=== PATIENT | female | born 1980 | race Caucasian/White ===

== ENCOUNTER 2018-02-21 12:43 | Emergency (ER) | payer OTHER ==
[2018-02-21 13:08] VITALS: BP 99/62
--- NOTE | 2018-02-21 14:21 | UC ---
Complaint Female HPI - HPI Summary HPI Summary: 37 y/o female presents to the urgent care c/o yeast infection "I think I have a yeast infection." Urinary urgency, "occassionally" dysuria, "maybe" vaginal itching, and nocturia (10x nightly) for one week. Symptoms are constant but wax and wane. Urgent Care visit in [facility]. 02/16/17; presumptively treated for a UTI and Yeast with Bactrim DS BID x 3 days and Diflucan x 2 72 hours apart. Was called to stop antibiotic because urine culture was normal. No other tested. Two days, patient used Monistat-1 without relief. - History Of Current Complaint Chief Complaint: UCGU Stated Complaint: PERSONAL Time Seen by Provider: 02/21/18 13:52 Hx Obtained From: Patient Hx Last Menstrual Period: ~02/06/18 Onset/Duration: Gradual Onset, Lasting Weeks - 1 week, Still Present, Worse Since - yesterday Timing: Constant Severity Initially: Mild Severity Currently: Moderate Pain Intensity: 8 Pain Scale Used: 0-10 Numeric Character: Burning Aggravating Factor(s): Urination Associated Signs And Symptoms: Positive: Vaginal Discharge. Negative: Fever, Back Pain, Vaginal Bleeding/Discharge, Genital Swelling, Genital Blisters - Risk Factors Ectopic Risk Factor: Negative Ovarian Torsion Risk Factor: Negative - Allergies/Home Medications Allergies/Adverse Reactions: Allergies Allergy/AdvReac Type Severity Reaction Status Date / Time No Known Allergies Allergy Verified 02/21/18 13:04 Home Medications: Home Medications Naproxen TAB* [Naprosyn 250 mg TAB*] 250 mg PO Q8H PRN 02/21/18 [History Confirmed 02/21/18] PMH/Surg Hx/FS Hx/Imm Hx Previously Healthy: Yes - Pt denies PMHX - Surgical History Surgical History: None - Family History Known Family History: Positive: Cardiac Disease Family History: Hypothyrodism - Social History Occupation: Employed Full-time Lives: With Family Alcohol Use: Occasionally Substance Use Type: None Smoking Status (MU): Current Some Day Smoker Review of Systems Constitutional: Negative Skin: Negative Eyes: Negative ENT: Negative Respiratory: Negative Cardiovascular: Negative Gastrointestinal: Other - pelvic pressure and pain Genitourinary: Dysuria, Frequency, Urgency Motor: Negative Neurovascular: Negative Musculoskeletal: Negative Neurological: Negative Psychological: Negative Is Patient Immunocompromised?: No All Other Systems Reviewed And Are Negative: Yes Physical Exam - Summary Physical Exam Summary: Vital signs: reviewed General: well developed, well nourished female sitting in the examining table w /o any acute distress. Head: Normocephalic, no lesions. Eyes: PERRLA, EOM's full, conjunctiva clear, fundi grossly normal. Ears: EAC's clear, TM's normal. Nose: Mucosa normal, no obstruction. Throat: Clear, no exudates, no lesions. Neck: Supple, no masses, no thyromegaly, no bruits. Chest: Lungs clear, no rales, no rhonchi, no wheezes. Heart: RR, no murmurs, no rubs, no gallops. Abdomen: Soft, no tenderness, no masses, BS normal. : Normal, no lesions, no discharge, no hernias noted. Pelvic: I was assited by Nurse Angel. External genitalia within normal limits. There is no lesions there is no masses noted. Speculum exam: The vaginal serrano are within normal limits w/ moderate white cottage cheese vaginal discharge, no the lesions or rashes. The cervix erythematous and friable like strawberry cervix. There is no CMT's, and no adnexal masses. Sample sent to Lab for and Affirm panel. Rectal: No lesions, no hemorrhoids, Back: Normal curvature, no tenderness. Extremities: FROM, no deformities, no edema, no erythema. Neuro: Physiological, no localizing findings. Skin: Normal, no rashes, no lesions noted. Triage Information Reviewed: Yes Vital Signs: Initial Vital Signs Temp 98.6 F 02/21/18 12:56 Pulse 64 02/21/18 12:56 Resp 16 02/21/18 12:56 BP 99/62 02/21/18 12:56 Pulse Ox 100 02/21/18 12:56 Complaint Female Dx - Differential Dx/Diagnosis Differential Diagnosis/HQI/PQRI: Cervicitis, Pelvic Inflammatory Disease, Renal Colic, Sexually Transmitted Disease, Ureteral Stone, Urinary Tract Infection Provider Diagnoses: 1- Dysuria. 2- Vaginal candidiasis. 3-Vaginosis Discharge - Discharge Plan Condition: Stable Disposition: HOME Prescriptions: Fluconazole [Fluconazole 150 mg tab] 150 mg PO ONCE #3 tablet metroNIDAZOLE [Flagyl 500 MG TAB] 2,000 mg PO ONCE #4 tab Phenazopyridine TAB* [Pyridium 100 mg TAB*] 100 mg PO TID #6 tab Patient Education Materials: Yeast Infection (ED), Vaginitis (ED) Referrals: [facility] [place] [facility]ERR[facility] [Outside] - 3 Days Additional Instructions: 1- Please take fluconazole as directed to alleviate your yeast infection 2-Take Metronidazole PO as directed to prophylactically Tx Trichomonas. 3- Specimen were sent to lab, if anything abnormal you will receive a call from us for further treatment. 4-TAke Pyridium PO to alleviate Dysuria symptoms, increase fluid intake or drink cranberry juice. Urine was sent to lab to r/o any abnormality 4-If not improvement of symptoms please return to the urgent care or f/u with your TRAINING ANALYST 3 days for further treatment - Billing Disposition and Condition Condition: STABLE Disposition: HOME
== END 2018-02-21 14:58 | disposition home or self-care (01) ==
LOC: UCCORT 12:43
DX: B37.3 Candidiasis of vulva and vagina (principal); N76.0 Acute vaginitis; R30.0 Dysuria; R35.1 Nocturia; R35.0 Frequency of micturition; R39.15 Urgency of urination; F17.200 Nicotine dependence, unspecified, uncomplicated
CPT/HCPCS: 81003; 84702; 87086; 87480; 87510; 87660; 99202; G0463

== ENCOUNTER 2018-03-30 10:21 | Emergency (ER) | payer OTHER ==
[2018-03-30 10:30] VITALS: BP 86/68
--- NOTE | 2018-03-30 10:39 | UC ---
Throat Pain/Nasal Yung HPI - HPI Summary HPI Summary: Patient presents with sinus congestion, sore throat, and progressive left ear pain. Patient denies fevers or chills. Patient has taken cold and sinus medication with mild improvement. Patient without nausea vomiting. No shortness of evidence of a cough. Patient does report postnasal drip. Patient without sick contacts. Medications medications reviewed this visit - History of Current Complaint Chief Complaint: UCGeneralIllness Stated Complaint: SORE THROAT, COUGH, EAR PAIN Time Seen by Provider: 03/30/18 10:36 Hx Obtained From: Patient Hx Last Menstrual Period: current Pain Intensity: 6 Cough: Nonproductive - Allergies/Home Medications Allergies/Adverse Reactions: Allergies Allergy/AdvReac Type Severity Reaction Status Date / Time No Known Allergies Allergy Verified 03/30/18 10:30 PMH/Surg Hx/FS Hx/Imm Hx Previously Healthy: Yes - Surgical History Surgical History: None - Family History Known Family History: Positive: Cardiac Disease Family History: Hypothyrodism - Social History Occupation: Employed Full-time Lives: With Family Alcohol Use: Occasionally Substance Use Type: None Smoking Status (MU): Current Some Day Smoker Review of Systems ENT: Sore Throat, Nasal Discharge, Sinus Congestion Respiratory: Cough All Other Systems Reviewed And Are Negative: Yes Physical Exam - Summary Physical Exam Summary: Vital Signs Reviewed: Yes A+Ox3, no distress Eyes: Conjunctiva Clear, ERIC. EOM intact and full ENT: Hearing grossly normal right TM mild fluid left TM ++ fluid, erythema, buldge turbinates inflammed. mmoist, uvula midline, no exudate, no erythema Neck: Positive: Supple Respiratory: Positive: No respiratory distress, No accessory muscle use + CTA throughout no w/r Cardiovascular: RRR nl s1, s2 no m/r CBT <2 sec abd soft + BS nt/nd no guarding, no distension Musculoskeletal Exam: CHOPRA x 4 without difficulty Strength Intact, ROM Intact Neurological: Positive: Alert, + sensation throughout Psychological: Positive: Normal Response To Family Skin: Positive: no rash, no ecchymosis Triage Information Reviewed: Yes Vital Signs: Initial Vital Signs Temp 97.5 F 03/30/18 10:26 Pulse 80 03/30/18 10:26 Resp 18 03/30/18 10:26 BP 86/68 03/30/18 10:26 Pulse Ox 98 03/30/18 10:26 Throat Pain/Nasal Course/Dx - Course Course Of Treatment: Patient presents to urgent care with progressive left ear pain. Patient was reassured as improved. Patient sinus congestion. On exam patient with left OM. Patient otherwise nonconservative exam. Will start antibiotics, hydration, recommend decongestant. secretion precaution. return precaution. pt comfort and in agreement with plan - Differential Dx/Diagnosis Provider Diagnoses: left OM Discharge - Sign-Out/Discharge Documenting (check all that apply): Discharge/Admit/Transfer - Discharge Plan Condition: Stable Disposition: HOME Prescriptions: Amoxicillin PO (*) [Amoxicillin 500 MG CAP*] 500 mg PO Q12H #20 cap Fluconazole [Diflucan 150 MG (NF)] 150 mg PO ONCE PRN #1 tab PRN Reason: vaginal yeast infection Fluticasone NASAL SPRAY 50MCG* [Flonase NASAL SPRAY 50MCG*] 2 spray BOTH NARES DAILY #1 btl Patient Education Materials: Ear Infection (ED) Referrals: Non Staff,Doctor [Primary Care Provider] - Additional Instructions: - Stay well hydrated. Drink plenty of non-alcoholic, non-caffinated beverages. - Alternate ibuprofen (Advil, Motrin) 600mg and Tylenol every 3 hours for pain or fever. Take with food. Do NOT take for more than 4-5 days. - These infections are spread by secretions - do NOT share eating or drinking utensils - clean items you share with other people such as cell phones, computer mouse, TV remote, computer tablets,etc. Once you have been antibiotics for 2 days, change your toothbrush and your pillowcase. - get plenty of restful sleep - humidify the air in the room where you sleep - boil water, run a hot steam shower, vaporizer, cups of water by heat register - okay to take over the counter decongestant and cough medication (Claritin-D, Nancy-D, Zyrtec-D, Sudafed) - use nasal spray as prescribed - contact your doctor or return with questions or concerns - Billing Disposition and Condition Condition: STABLE Disposition: Home
== END 2018-03-30 11:00 | disposition home or self-care (01) ==
LOC: UCCORT 10:21
DX: H66.92 Otitis media, unspecified, left ear (principal); F17.210 Nicotine dependence, cigarettes, uncomplicated
CPT/HCPCS: 99212; G0463